=== PATIENT | male | born 2000 | race Caucasian/White ===

== ENCOUNTER 2024-01-25 15:27 | Emergency (ER) | payer SELFPAY ==
[~2024-01-25] VITALS: Ht 177.8 cm; Wt 95.3 kg
[2024-01-25 15:45] VITALS: BP 104/47; PULSE 67; RESP 18; TEMP 97.6; O2SAT 98
[2024-01-25 17:41] VITALS: BP 110/52; PULSE 88; RESP 16; TEMP 97.6; O2SAT 98
== END 2024-01-25 17:20 | disposition home or self-care (01) ==
LOC: MED 15:27
DX: S50.02XA Contusion of left elbow, initial encounter (principal); T40.715A Adverse effect of cannabis, initial encounter; F12.90 Cannabis use, unspecified, uncomplicated; W19.XXXA Unspecified fall, initial encounter; Y93.89 Activity, other specified; Y92.89 Other specified places as the place of occurrence of the external cause; Y99.8 Other external cause status
CPT/HCPCS: 73080; 99283